=== PATIENT | male | born 1970 | race Hispanic/Latino ===

== ENCOUNTER 2018-11-25 18:16 | Emergency (ER) | payer BC ==
--- NOTE | 2018-11-25 19:16 | ER ---
Nurse's Notes [facility] Name: Vishnu Bynum Age: 48 yrs Sex: Male : 1970 Arrival Date: 11/25/2018 Time: 18:19 Bed 15 Private MD: Denis Yusuf V Diagnosis: Bitten by dog Presentation: 11/25 18:19 Presenting complaint: Patient states: dog bite to L lateral thigh. Transition of care: ss patient was not received from another setting of care. Onset of symptoms was November 25, 2018. Risk Assessment: Do you want to hurt yourself or someone else? Patient reports no desire to harm self or others. Initial Sepsis Screen: Does the patient meet any 2 criteria? No. Patient's initial sepsis screen is negative. Does the patient have a suspected source of infection? No. Patient's initial sepsis screen is negative. Care prior to arrival: None. 18:19 Method Of Arrival: Ambulatory ss 18:19 Acuity: VERNA 4 ss Triage Assessment: 19:05 Bite description: bite sustained to left thigh by a dog, animal information: rr5 vaccination(s) is unknown. Historical: - Allergies: 18:22 No Known Allergies; ss - PMHx: 18:22 Diabetes - IDDM; Hypertension; High Cholesterol; ss - Immunization history:: Last tetanus immunization: < 10 years ago. - Social history:: Smoking status: Patient/guardian denies using tobacco. - Ebola Screening: : Patient denies exposure to infectious person Patient denies travel to an Ebola-affected area in the 21 days before illness onset. Screenin:56 Abuse screen: Denies threats or abuse. Denies injuries from another. Nutritional hb screening: No deficits noted. Tuberculosis screening: No symptoms or risk factors identified. Fall Risk None identified. 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 18:56 General: Appears in no apparent distress. Behavior is calm, cooperative. Pain: Pain hb currently is 7 out of 10 on a pain scale. Neuro: Level of Consciousness is awake, alert, obeys commands, Oriented to person, place, time, situation. Cardiovascular: Capillary refill < 3 seconds Patient's skin is warm and dry. Respiratory: Airway is patent Respiratory effort is even, unlabored, Respiratory pattern is regular, symmetrical. GI: No signs and/or symptoms were reported involving the gastrointestinal system. : No signs and/or symptoms were reported regarding the genitourinary system. EENT: No signs and/or symptoms were reported regarding the EENT system. Derm: Skin is healthy with good turgor, Skin is pink, warm \T\ dry. Musculoskeletal: No signs and/or symptoms reported regarding the musculoskeletal system. Injury Description: Bite sustained to lateral aspect of left thigh caused by a dog, was sustained 2-4 hours ago. 19:05 Reassessment: Patient appears in no apparent distress at this time. Patient is alert, rr5 oriented x 3, equal unlabored respirations, skin warm/dry/pink. no complaints made, awaiting for review. GCS 15/15 not in distress breathing spontaneously, dog bite at left thigh noted. 20:00 Reassessment: Patient appears in no apparent distress at this time. Patient is alert, rr5 oriented x 3, equal unlabored respirations, skin warm/dry/pink. discharge instruction given and explained without complaints made. Vital Signs: 18:22 BP 157 / 96; Pulse 87; Resp 16; Temp 98.7(TE); Pulse Ox 100% on R/A; Weight 77.11 kg; Height 5 ft. 8 in. (172.72 cm); Pain 5/10; 19:05 BP 145 / 75; Pulse 80; Resp 17; Temp 98.1; Pulse Ox 100% ; Pain 7/10; rr5 19:55 BP 133 / 70; Pulse 86; Resp 18; Temp 98.1; Pulse Ox 99% ; rr5 18:22 Body Mass Index 25.85 (77.11 kg, 172.72 cm) ED Course: 18:19 Patient arrived in ED. mr 18:19 Denis Yusuf MD is Private Physician. mr 18:21 Triage completed. ss 18:22 Arm band placed on right wrist. ss 18:50 Dori Lazo, ANA is Primary Nurse. hb 18:51 Samuel Mcmullen PA is PHCP. jr8 18:51 Blas Castellanos MD is Attending Physician. jr8 18:56 Patient has correct armband on for positive identification. Placed in gown. Bed in low hb position. Call light in reach. Side rails up X 1. 19:15 Denis Yusuf MD is Referral Physician. jr8 19:30 Wound care: to dog bite located on left thigh was cleaned with Hibiclens, Patient rr5 tolerated well. 20:00 No provider procedures requiring assistance completed. Patient did not have IV access rr5 during this emergency room visit. 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 Exp: rr5 09/19/2020. Lot #: [id number]. } Route: IM; Site: right deltoid; 20:00 Follow up: Response: No adverse reaction rr5 Outcome: 19:15 Discharge ordered by MD. jr8 19:55 Discharged to home ambulatory, with family. rr5 19:55 Condition: stable 19:55 Discharge instructions given to patient, Instructed on discharge instructions, follow rr5 up and referral plans. medication usage, Demonstrated understanding of instructions, follow-up care, medications, Prescriptions given X 1. 20:00 Patient left the ED. rr5 Signatures: Kelsea Villanueva Shelby, RN RN Samuel Mcmullen PA PA jr8 Dori Lazo RN RN Renato Campoverde RN RN rr5 Corrections: (The following items were deleted from the chart) 20:44 20:15 No provider procedures requiring assistance completed. rr5 rr5 20:44 20:15 Patient did not have IV access during this emergency room visit. rr5 rr5
--- NOTE | 2018-11-25 19:16 | EDPHYS ---
Physician Documentation [facility] Name: Vishnu Bynum Age: 48 yrs Sex: Male : 1970 Arrival Date: 11/25/2018 Time: 18:19 Bed 15 Private MD: Denis Yusuf V ED Physician Blas Castellanos HPI: 11/25 19:00 This 48 yrs old Male presents to ER via Ambulatory with complaints of Dog Bite.jr8 19:00 The patient was bitten on the lateral aspect of left thigh, by a dog, as a result of jr8 being attacked by the animal, in an unprovoked manner, at work. Onset: The symptoms/episode began/occurred suddenly. Animal information: The animal was reported to appear healthy. is unknown, The animal is known and can be quarantined. Secondary to the bite the patient reports an abrasion. Associated signs and symptoms: The patient has no apparent associated signs or symptoms. Severity of symptoms: in the emergency department the symptoms a " 0" out of "10". The patient has not experienced similar symptoms in the past. 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 Client did not know vaccination status of dog but dog has been healthy and in their care for sometime. Historical: - Allergies: 18:22 No Known Allergies; ss - PMHx: 18:22 Diabetes - IDDM; Hypertension; High Cholesterol; ss - Immunization history:: Last tetanus immunization: < 10 years ago. - Social history:: Smoking status: Patient/guardian denies using tobacco. - Ebola Screening: : Patient denies exposure to infectious person Patient denies travel to an Ebola-affected area in the 21 days before illness onset. ROS: 19:00 Constitutional: Negative for fever, chills, and weight loss, Cardiovascular: Negative jr8 for chest pain, palpitations, and edema, Respiratory: Negative for shortness of breath, cough, wheezing, and pleuritic chest pain, Abdomen/GI: Negative for abdominal pain, nausea, vomiting, diarrhea, and constipation, MS/Extremity: Negative for injury and deformity, Neuro: Negative for headache, weakness, numbness, tingling, and seizure, Psych: Negative for depression, anxiety, suicide ideation, homicidal ideation, and hallucinations. 19:00 Skin: Positive for abrasion(s), Negative for cellulitis, erythema, puncture. Exam: 19:00 Constitutional: This is a well developed, well nourished patient who is awake, alert, jr8 and in no acute distress. Head/Face: Normocephalic, atraumatic. Eyes: Pupils equal round and reactive to light, extra-ocular motions intact. Lids and lashes normal. Conjunctiva and sclera are non-icteric and not injected. Cornea within normal limits. Periorbital areas with no swelling, redness, or edema. Cardiovascular: Regular rate and rhythm with a normal S1 and S2. No gallops, murmurs, or rubs. Normal PMI, no JVD. No pulse deficits. Respiratory: Lungs have equal breath sounds bilaterally, clear to auscultation and percussion. No rales, rhonchi or wheezes noted. No increased work of breathing, no retractions or nasal flaring. MS/ Extremity: Pulses equal, no cyanosis. Neurovascular intact. Full, normal range of motion. Neuro: Awake and alert, GCS 15, oriented to person, place, time, and situation. Cranial nerves II-XII grossly intact. Motor strength 5/5 in all extremities. Sensory grossly intact. Cerebellar exam normal. Normal gait. 19:00 Skin: Appearance: normal except for affected area, abrasion noted to left lateral thigh s/p dog bite. No puncture noted. . Vital Signs: 18:22 BP 157 / 96; Pulse 87; Resp 16; Temp 98.7(TE); Pulse Ox 100% on R/A; Weight 77.11 kg; ss Height 5 ft. 8 in. (172.72 cm); Pain 5/10; 19:05 BP 145 / 75; Pulse 80; Resp 17; Temp 98.1; Pulse Ox 100% ; Pain 7/10; rr5 19:55 BP 133 / 70; Pulse 86; Resp 18; Temp 98.1; Pulse Ox 99% ; rr5 18:22 Body Mass Index 25.85 (77.11 kg, 172.72 cm) ss MDM: 18:51 Patient medically screened. jr8 19:00 Differential diagnosis: superficial abrasion. Rabies Status: Rabies immunization is not jr8 indicated. ED course: Spoke with patient regarding plan of care. Dog is low risk for rabies; patient to be updated on tetanus status and d/c home on antibiotics to follow up with PCP. 19:14 Data reviewed: vital signs, nurses notes, and as a result, I will discharge patient. herson Data interpreted: Pulse oximetry: on room air is 100 %. Interpretation: normal. Counseling: I had a detailed discussion with the patient and/or guardian regarding: the historical points, exam findings, and any diagnostic results supporting the discharge/admit diagnosis, the need for outpatient follow up, a family practitioner, to return to the emergency department if symptoms worsen or persist or if there are any questions or concerns that arise at home. 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 Exp: rr5 09/19/2020. Lot #: [id number]. } Route: IM; Site: right deltoid; 20:00 Follow up: Response: No adverse reaction rr5 Disposition: 11/26 07:01 Co-signature as Attending Physician, Blas Castellanos MD I agree with the assessment and velasquez plan of care. Disposition: 11/25/18 19:15 Discharged to Home. Impression: Bitten by dog. - Condition is Stable. - Discharge Instructions: Puncture Wound, Animal Bite. - Prescriptions for Augmentin 875- 125 mg Oral Tablet - take 1 tablet by ORAL route every 12 hours for 10 days; 20 tablet. - Medication Reconciliation Form, Thank You Letter, Antibiotic Education, Prescription Opioid Use form. - Follow up: Denis Yusuf MD; When: 5 - 6 days; Reason: Wound Recheck, Recheck today's complaints, Continuance of care, Re-evaluation by your physician. - Problem is new. - Symptoms have improved. Signatures: Blas Castellanos MD MD cha Smirch, Shelby, RN RN Samuel Acevedo PA PA jr8 Renato Campoverde RN RN rr5 Corrections: (The following items were deleted from the chart) 11/25 20:00 19:15 11/25/2018 19:15 Discharged to Home. Impression: Bitten by dog. Condition is rr5 Stable. Forms are Medication Reconciliation Form, Thank You Letter, Antibiotic Education, Prescription Opioid Use. Follow up: Denis Yusuf; When: 5 - 6 days; Reason: Wound Recheck, Recheck today's complaints, Continuance of care, Re-evaluation by your physician. Problem is new. Symptoms have improved. jr8
[2018-11-25] MEDS ORDERED: TETANUS & DIPHTHERIA TOX,ADULT 0.5 ML VIAL ONE (19:33)
[2018-11-25 20:25] VITALS: BP 157/96; TEMP 98.7; O2SAT 100
== END 2018-11-25 20:00 | disposition home or self-care (01) ==
LOC: ER 18:16
DX: S70.372A Other superficial bite of left thigh, initial encounter (principal); W54.0XXA Bitten by dog, initial encounter; E11.9 Type 2 diabetes mellitus without complications; I10 Essential (primary) hypertension; E78.00 Pure hypercholesterolemia, unspecified; Z79.4 Long term (current) use of insulin; Z23 Encounter for immunization
CPT/HCPCS: 90471; 90714; 99283